=== PATIENT | female | born 1955 | race Caucasian/White ===

== ENCOUNTER 2024-08-26 18:05 | Inpatient (IN) | payer BC ==
[~2024-08-26] VITALS: Ht 165.1 cm; Wt 68.9 kg
[~2024-08-26 18:05] MED LIST: ASPI-1420 PO; ATOR40TA PO; CALC500T89 PO; ESCI20TA PO; ESOM40CA PO; FOLI1TAB94 PO; MYCO250C PO; OMEG300C3 PO; PRED-170 PO; TACR1CAP2 PO
[2024-08-26] MEDS ORDERED: PANT40TA49 PO (18:15)
[2024-08-26] MEDS ORDERED: ACET-73 PO (18:15)
[2024-08-26] MEDS ORDERED: TRAZ-257 PO (18:15)
[2024-08-26 19:02] LABS: BASOPHILS % (AUTO) 0.4 % (0.0-2.0); DIFFERENTIAL COMMENT 1; EOSINOPHILS % (AUTO) 0.4 % (0.0-7.0); HEMATOCRIT 44.1 % (31.2-41.9); HEMOGLOBIN 14.7 g/dL (10.9-14.3); LYMPHOCYTES # (AUTO) 1.9 K/uL (0.8-4.8); LYMPHOCYTES % (AUTO) 15.9 % (20.5-51.5); MEAN CORPUSCULAR HEMOGLOBIN 31.3 uug (24.7-32.8); MEAN CORPUSCULAR HGB CONC 33 g/dL (32.3-35.6); MEAN CORPUSCULAR VOLUME 93.8 fL (75.5-95.3); MONOCYTES # (AUTO) 0.9 K/uL (0.1-1.30); MONOCYTES % (AUTO) 7.5 % (0.0-11.0); NEUTROPHILS # (AUTO) 8.9 K/uL (1.8-8.9); NEUTROPHILS % (AUTO) 75.8 % (38.5-71.5); PLATELET COUNT (AUTO) 239 K/uL (179-408); WHITE BLOOD COUNT (AUTO) 11.7 K/uL (3.8-11.8)
[2024-08-26 19:03] LABS: *BILIRUBIN,URIN NEGATIVE (NEGATIVE); *BLOOD, URINE NEGATIVE (NEGATIVE); *CLARITY,URINE CLEAR (CLEAR); *COLOR,URINE YELLOW (YELLOW); *KETONES,URINE NEGATIVE (NEGATIVE); *PROTEIN,URINE NEGATIVE (NEGATIVE); *UROBILINOGEN,URINE 0.2 E.U./dl (NORMAL); LEUKOCYTE ESTERASE ,URINE 1+ (NEGATIVE); NITRITE, URINE NEGATIVE (NEGATIVE); PH,URINE 6.5 (5.0-8.0); UGLUCOSE TRACE (NEGATIVE)
[2024-08-26 19:04] LABS: RBC,URINE 0-3 /HPF (0-3)
[2024-08-26 19:09] LABS: AMMONIA < 10 umol/L (11-32); CALCIUM 9.1 mg/dL (8.5-10.1); CARBON DIOXIDE 26 mmol/L (21-32); CHLORIDE 104 mmol/L (98-107); GLUCOSE 112 mg/dL (74-106); POTASSIUM 3.6 mmol/L (3.5-5.1); SODIUM SERUM 141 mmol/L (136-145); UREA NITROGEN, BLOOD 15 mg/dL (7-18)
[2024-08-26 19:12] LABS: ETHANOL < 3 MG/DL (0-10)
[2024-08-26] MEDS: IV NORMAL SALINE 1000 ML BAG IV ONE (19:13)
[2024-08-26 19:16] LABS: ALANINE AMINOTRANSFERASE 51 U/L (14-59); ALBUMIN 3.4 g/dL (3.4-5.0); ALKALINE PHOSPHATASE 75 U/L (50-136); ASPARTATE AMINOTRANSFERASE 29 U/L (15-37); BILIRUBIN,DIRECT 0.2 mg/dL (0.0-0.2); BILIRUBIN,TOTAL 0.4 mg/dL (0.2-1.0); TOTAL PROTEIN, SERUM 6.8 g/dL (6.4-8.2)
[2024-08-26 19:21] LABS: THYROID STIMULATING HORMONE 2.511 mIU/mL (0.358-3.740)
[2024-08-26 19:26] LABS: ACETAMINOPHEN < 2.0 ug/mL (10-30)
[2024-08-26] MEDS ORDERED: ONDANSETRON 4 MG/2 ML VIAL IV PRN (21:00)
[2024-08-26] MEDS ORDERED: MAGNESIUM HYDROXIDE 30 ML LIQUID UDC PO PRN (21:00)
[2024-08-26] MEDS ORDERED: DOCUSATE SODIUM 250 MG CAPSULE PO SCH (21:00)
[2024-08-26] MEDS ORDERED: MULT-1201 PO (21:07)
[2024-08-26] MEDS ORDERED: ESCI10TA PO (21:07)
[2024-08-26] MEDS ORDERED: MYCO250C PO (21:07)
[2024-08-26 22:00] VITALS: BP 173/88; TEMP 98.6; O2SAT 97
[2024-08-26] MEDS: ATORVASTATIN 40 MG TABLET PO SCH (22:07)
[2024-08-26] MEDS: TRAZODONE 100 MG TABLET PO SCH (22:08)
[2024-08-26 22:15] VITALS: BP 175/92; O2SAT 97
[2024-08-26] MEDS ORDERED: CEFTRIAXONE /D5W 50ML IVPB **ER PYXIS IV ONE (22:25)
[2024-08-26 22:45] VITALS: BP 155/76; O2SAT 98
[2024-08-26] MEDS: CEFTRIAXONE 1 G in IV DEXTROSE 5% 50 ML IV SCH (23:03)
[2024-08-26] MEDS: DOCUSATE SODIUM 100 MG CAPSULE PO SCH (23:08)
[2024-08-26] MEDS: ACETAMINOPHEN 325 MG TABLET PO PRN (23:14)
[2024-08-27] VITALS (9 sets, daily range): BP systolic 118–143; BP diastolic 66–83; TEMP 97.6–98.1; O2SAT 94–98
[2024-08-27] MEDS: METOPROLOL TARTRATE 25 MG TABLET PO SCH (00:38)
[2024-08-27 06:31] LABS: BASOPHILS % (AUTO) 0.5 % (0.0-2.0); EOSINOPHILS # (AUTO) 0.1 K/uL (0.0-0.7); EOSINOPHILS % (AUTO) 1.5 % (0.0-7.0); HEMATOCRIT 41.2 % (31.2-41.9); HEMOGLOBIN 13.6 g/dL (10.9-14.3); LYMPHOCYTES % (AUTO) 21.8 % (20.5-51.5); MEAN CORPUSCULAR HGB CONC 33 g/dL (32.3-35.6); MEAN CORPUSCULAR VOLUME 93.7 fL (75.5-95.3); MONOCYTES # (AUTO) 0.9 K/uL (0.1-1.30); MONOCYTES % (AUTO) 9.8 % (0.0-11.0); NEUTROPHILS # (AUTO) 6.2 K/uL (1.8-8.9); NEUTROPHILS % (AUTO) 66.4 % (38.5-71.5); PLATELET COUNT (AUTO) 207 K/uL (179-408); RED BLOOD CELL COUNT(AUTO) 4.39 MIL/uL (3.63-4.92); RED CELL DISTRIBUTION WIDTH 13.1 % (12.3-17.7); WHITE BLOOD COUNT (AUTO) 9.3 K/uL (3.8-11.8)
[2024-08-27 06:42] LABS: DIFFERENTIAL COMMENT 1
[2024-08-27 06:58] LABS: BILIRUBIN,TOTAL 0.8 mg/dL (0.2-1.0); CALCIUM 8.8 mg/dL (8.5-10.1); CREATININE 0.9 mg/dL (0.6-1.3); MAGNESIUM 1.8 mg/dL (1.8-2.4); PHOSPHOROUS 2.7 mg/dL (2.5-4.9); TOTAL PROTEIN, SERUM 5.5 g/dL (6.4-8.2)
[2024-08-27 07:21] LABS: POTASSIUM 3.7 mmol/L (3.5-5.1)
[2024-08-27] MEDS: ESCITALOPRAM OXALATE 10 MG TABLET PO SCH (08:40)
[2024-08-27] MEDS: CALCIUM CARBONATE 500 MG TABLET PO SCH (08:40)
[2024-08-27] MEDS: PANTOPRAZOLE SODIUM 40 MG TABLET.DR PO SCH (08:40)
[2024-08-27] MEDS: predniSONE 5 MG TABLET PO SCH (08:41)
[2024-08-27] MEDS: FOLIC ACID 1 MG TABLET PO SCH (08:41)
[2024-08-27] MEDS: OMEGA-3 FATTY ACIDS/FISH OIL CAPSULE PO SCH (08:41)
[2024-08-27] MEDS: ASPIRIN EC 81 MG TABLET.DR PO SCH (08:41)
[2024-08-27] MEDS: TACROLIMUS ANHYDROUS 0.5 MG CAPSULE PO SCH (08:41)
[2024-08-27] MEDS ORDERED: Medication Not On Formulary EA (Omega-3 Fatty Acids (Fish Oil) 300 MG) PO SCH (09:00)
[2024-08-27] MEDS ORDERED: MYCOPHENOLATE MOFETIL 250 MG CAPSULE PO SCH ×2 (09:00→17:00)
[2024-08-27] MEDS ORDERED: TACROLIMUS ANHYDROUS 1 MG PO SCH (09:00)
[2024-08-27] MEDS ORDERED: Medication Not On Formulary EA (Escitalopram Oxalate (Lexapro) 20 MG) PO SCH (09:00)
[2024-08-27] MEDS: MYCOPHENOLATE MOFETIL 250 MG CAPSULE PO SCH (11:40)
[2024-08-28 00:28] VITALS: BP 117/59; TEMP 97.3; O2SAT 95
[2024-08-28 04:45] VITALS: BP 156/78; TEMP 97.5; O2SAT 97
[2024-08-28 07:37] VITALS: BP 133/72; TEMP 98.1; O2SAT 96
[2024-08-28 08:00] VITALS: BP 137/69; TEMP 98.1; O2SAT 96
[2024-08-28 15:32] LABS: THYROID STIMULATING HORMONE 0.503 mIU/mL (0.358-3.740)
[2024-08-28 19:00] VITALS: BP 119/74; TEMP 98; O2SAT 94
[2024-08-29] VITALS: BP 128/59; TEMP 98; O2SAT 96
[2024-08-29 04:00] VITALS: BP 137/72; TEMP 97.7; O2SAT 95
[2024-08-29 07:40] VITALS: BP 141/77; TEMP 97.7; O2SAT 98
[2024-08-29 11:02] VITALS: BP 139/64; TEMP 97.7; O2SAT 96
[2024-08-29] MEDS ORDERED: CEPH500C2 PO (11:41)
[2024-09-01 19:11] LABS: METHYLMALONIC ACID 170 nmol/L (0-378)
== END 2024-08-29 13:30 | disposition home or self-care (01) | DRG 689 ==
LOC: ER 18:05 → TELE3 21:03
PROVIDERS: ADMIT Internal Medicine; ATTEND Internal Medicine
DX: N39.0 Urinary tract infection, site not specified (principal); G93.41 Metabolic encephalopathy; G45.9 Transient cerebral ischemic attack, unspecified; Z94.0 Kidney transplant status; D84.821 Immunodeficiency due to drugs; H53.40 Unspecified visual field defects; I10 Essential (primary) hypertension; E11.9 Type 2 diabetes mellitus without complications; Z86.79 Personal history of other diseases of the circulatory system; Z79.624 Long term (current) use of inhibitors of nucleotide synthesis; Z79.899 Other long term (current) drug therapy; Z79.82 Long term (current) use of aspirin
CPT/HCPCS: 36415; 70450; 70551; 71045; 83735; 83921; 84100; 84443; 84484; 85025; 87040; 93307; 93880; A4606; A4663; G0378; G0480; J0696; J7040; J7507; J7512; J7517